=== PATIENT | male | born 1975 | race Caucasian/White ===

== ENCOUNTER 2024-09-15 17:57 | Emergency (ER) | payer BC, SELFPAY ==
[2024-09-15 18:19] VITALS: BP 163/100; PULSE 79; TEMP 36.8; O2SAT 96; BMI 28.2
--- NOTE | 2024-09-15 18:30 | ED_ITS ---
Documented by User: Stephanieantwan Guilloryon 09/15/24 21:03 HPI - Abdominal Pain General Chief Complaint: Abdominal Pain Stated Complaint: abd pain Time Seen by Provider: 09/15/24 18:27 Mode of arrival: walk-in History of Present Illness HPI narrative: 49 year old male presents to the ED for abd pain. Onset was within the past few days; it became worse today. Reports a known umbilical hernia for some time. He has never had pain to the area until this week. Denies fever, chills, N/V/D, urinary sx. States his bowel movements have been irregular. He had a small bowel movement this morning. He last passed gas at 1000 this morning. Related Data Allergies Allergy/AdvReac Type Severity Reaction Status Date / Time Penicillins AdvReac Severe Rash Verified 09/15/24 18:18 Review of Systems ROS Constitutional Denies: fever or chills Cardiovascular Denies: chest pain Respiratory Denies: shortness of breath Gastrointestinal Reports: abdominal pain, bloating and change in bowel habits; Denies: nausea, vomiting, diarrhea or constipation Genitourinary Denies: painful urination, urinary frequency, urinary urgency or blood in urine Musculoskeletal Denies: back pain or neck pain Neurological Denies: headache PFSH PFSH Social History Little interest or pleasure in doing things: not at all Feeling down, depressed, or hopeless: not at all Exam Constitutional Vital Signs, click to edit/add: Last Vital Signs Temp 98.2 F 09/15/24 18:19 Pulse 64 09/15/24 22:22 Resp 16 09/15/24 22:22 BP 153/96 H 09/15/24 22:22 Pulse Ox 97 09/15/24 22:22 O2 Del Method Room Air 09/15/24 22:22 Common normals: no apparent distress and oriented x3 General appearance: cooperative Eye Common normals: conjunctivae normal and no scleral icterus Neck & C-Spine Common normals: supple Chest Chest: symmetrical chest wall rise Respiratory Common normals: normal respiratory effort Effort & inspection: able to speak in complete sentences and symmetric chest mo vement Cardio Common normals: regular rate and regular rhythm GI Auscultation: hyperactive bowel sounds Palpation: tender Details: periumbilical and hernia umbilical (firm, tender) Neuro Common normals: oriented x3 and moves all extremities Sensorium/orientation: awake and alert Speech: speech normal Course Vital Signs Vital signs: Vital Signs Temperature 98.2 F 09/15/24 18:19 Pulse Rate 79 09/15/24 18:19 Respiratory Rate 18 09/15/24 18:19 Blood Pressure 163/100 H 09/15/24 18:19 Pulse Oximetry 96 09/15/24 18:19 Temperature 98.2 F 09/15/24 18:19 Pulse Rate 64 09/15/24 22:22 Respiratory Rate 16 09/15/24 22:22 Blood Pressure 153/96 H 09/15/24 22:22 Pulse Oximetry 97 09/15/24 22:22 Oxygen Delivery Method Room Air 09/15/24 22:22 MDM - Abdominal Pain MDM Narrative Medical decision making narrative: WBC count was 12.3. CT scan was pending. Care was resumed to Dr. Mullins. See her dictation for further evaluation and treatment. Differential Diagnosis Differential diagnosis: Likely abdominal pain, constipation, diverticulitis, small bowel obstruction and other (hernia) Medical Records Attestation: I reviewed the patient's medical records. Lab Data Attestation: I reviewed the patient's lab results. Labs: Lab Results 09/15/24 09/15/24 Range/Units 18:44 18:47 WBC 12.3 H (4.0-11.0) 10^3/uL RBC 5.30 (4.70-6.10) 10^6/uL Hgb 17.0 (14.0-18.0) g/dL Hct 50.0 (42.0-54.0) % MCV 94.3 H (80.0-94.0) fL MCH 32.1 (25.9-34.0) pg MCHC 34.0 (29.9-35.2) g/dL RDW 12.3 (11.0-15.0) % Plt Count 298 (150-450) 10^3/uL MPV 9.5 (9.5-13.5) fL Neut % (Auto) 60.1 (43.0-75.0) % Lymph % (Auto) 22.4 (20.5-60.0) % [place] % (Auto) 11.9 (1.7-12.0) % Eos % (Auto) 4.7 (0.9-7.0) % Baso % (Auto) 0.6 (0.2-2.0) % Neut # (Auto) 7.4 H (1.4-6.5) 10^3/uL Lymph # (Auto) 2.8 (1.2-3.8) 10^3/uL [place] # (Auto) 1.5 H (0.3-0.8) 10^3/uL Eos # (Auto) 0.6 (0.0-0.7) 10^3/uL Baso # (Auto) 0.1 (0.0-0.1) 10^3/uL Abs Immat Gran (auto) 0.04 H (0.00-0.03) 10^3/uL Imm/Tot Granulo (auto) 0.3 (0.0-0.5) % Sodium 138 (136-145) mmol/L Potassium 3.5 (3.5-5.1) mmol/L Chloride 104 (98-107) mmol/L Carbon Dioxide 25.8 (21.0-32.0) mmol/L Anion Gap 11.7 BUN 17.0 (7.0-18.0) mg/dL Creatinine 0.99 (0.70-1.30) mg/dL Est GFR ( Amer) >60 (>=60 mL/min/1.73m^2) Est GFR (Non-Af Amer) >60 (>=60 mL/min/1.73m^2) BUN/Creatinine Ratio 17.2 Glucose 85 (74-106) mg/dL Calcium 9.0 (8.5-10.1) mg/dL Total Bilirubin 0.7 (0.2-1.0) mg/dL AST 22 (15-37) U/L ALT 38 (16-63) U/L Alkaline Phosphatase 90 (46-116) U/L Total Protein 7.7 (6.4-8.2) g/dL Albumin 3.9 (3.4-5.0) g/dL Globulin 3.8 g/dL Albumin/Globulin Ratio 1.0 Lipase 60.0 (16.0-77.0) U/L Urine Color Lt. yellow (YELLOW) Urine Clarity Clear (CLEAR) Urine pH 6.0 (5.0-9.0) Ur Specific [place] 1.020 (1.005-1.025) Urine Protein Negative (NEG/TRACE) mg/dL Urine Glucose (UA) Negative (NEGATIVE) mg/dL Urine Ketones Negative (NEGATIVE) mg/dL Urine Occult Blood Trace-i (NEGATIVE) Urine Nitrite Negative (NEGATIVE) Urine Bilirubin Negative (NEGATIVE) Urine Urobilinogen 0.2 (0.2-1.0) EU/dL Ur Leukocyte Esterase Negative (NEGATIVE) Urine RBC 0-2 (0-2) #/HPF Urine WBC None seen (NONE SEEN) #/HPF Ur Squamous Epith Cells None seen (NONE/RARE) #/LPF Urine Crystals None seen (None Seen) #/HPF Urine Bacteria None seen (NONE SEEN) #/HPF Urine Casts None seen (NONE SEEN) #/LPF Urine Mucus None seen (NONE SEEN) Ur Culture Indicated? No Imaging Data CT scan - abdomen: Radiologist's impression: ITS Impressions Abdomen/Pelvis CT 09/15/24 18:30 IMPRESSION: 1. Mild stranding seen adjacent to the right-sided colonic diverticula, consistent with mild right-sided diverticulitis. 2. Small umbilical hernia containing predominantly fatty tissue with mild infiltration. Recommend clinical correlation for possible incarceration. 3. Small left inguinal hernia containing predominantly fatty tissue. Colonic diverticulosis. Mild hepatic steatosis. 4. Nonobstructing 3 mm calculus lower pole left kidney. Electronically authenticated by: ANKIT BERMAN Date: 09/15/2024 21:30 Discharge Plan Discharge Chief Complaint: Abdominal Pain Clinical Impression: Abdominal pain, Hernia, umbilical, Diverticulitis Patient Disposition: Home, Self-Care Time of Disposition Decision: 21:49 Condition: Good Mode of Transportation: Private Vehicle Print Language: Cypriot Instructions: Diverticulitis (ED), Umbilical Hernia (ED) Referrals: Armani Collazo MD [Primary Care Provider] - 1 week Dustin Cuenca DO [Physician] - 1 week Edgar Veliz MD [Physician] - 1 week Discharge Date/Time: 09/15/24 21:54 Documented by User: Jordana Mullins MD 09/15/24 23:39 HPI - Abdominal Pain General Chief Complaint: Abdominal Pain Stated Complaint: abd pain Time Seen by Provider: 09/15/24 18:27 Related Data Allergies Allergy/AdvReac Type Severity Reaction Status Date / Time Penicillins AdvReac Severe Rash Verified 09/15/24 18:18 PFSH PFSH Social History Little interest or pleasure in doing things: not at all Feeling down, depressed, or hopeless: not at all Exam Constitutional Vital Signs, click to edit/add: Last Vital Signs Temp 98.2 F 09/15/24 18:19 Pulse 64 09/15/24 22:22 Resp 16 09/15/24 22:22 BP 153/96 H 09/15/24 22:22 Pulse Ox 97 09/15/24 22:22 O2 Del Method Room Air 09/15/24 22:22 Course Vital Signs Vital signs: Vital Signs Temperature 98.2 F 09/15/24 18:19 Pulse Rate 79 09/15/24 18:19 Respiratory Rate 18 09/15/24 18:19 Blood Pressure 163/100 H 09/15/24 18:19 Pulse Oximetry 96 09/15/24 18:19 Temperature 98.2 F 09/15/24 18:19 Pulse Rate 64 09/15/24 22:22 Respiratory Rate 16 09/15/24 22:22 Blood Pressure 153/96 H 09/15/24 22:22 Pulse Oximetry 97 09/15/24 22:22 Oxygen Delivery Method Room Air 09/15/24 22:22 MDM - Abdominal Pain MDM Narrative Medical decision making narrative: WBC count was 12.3. CT scan was pending. Care was resumed to Dr. Mullins. See her dictation for further evaluation and treatment. This patient was seen and evaluated in conjunction with the nurse practitioner. Please refer to her H&P This 49-year-old male with a history of umbilical hernia presents for evaluation of increasing hernia pain with some mild redness at the area and generalized abdominal pain with fullness. He has not had a fever. He denies any specific constipation but states his bowels have not been moving as normal. He has not had any fevers or chills. He has not had any nausea or vomiting. His umbilical hernia is mildly tender and erythematous. I did not attempt to reduce it after the CT scan report revealed that it only contained fat. His labs are essentially normal. CT scan of the abdomen pelvis shows fat-containing umbilical hernia and mild diverticulitis. The results of the CT scan were discussed with the patient at length. He is not having significant pain at this time and is not having any nausea or vomiting. I suspect that his hernia is not the etiology of his pain. General surgery is not available at this time at this facility for consultation. I offered to speak with surgeons at another facility but clinically the patient is not suffering from an incarcerated hernia. He was medicated with oral Cipro and Flagyl and given 2 [place] to take at home. He was encouraged to follow-up closely with his family physician for referral to a general surgeon for repair of the fat-containing umbilical hernia and was given prescriptions for Cipro, Flagyl, Zofran, [place] and Colace. He was encouraged return to the emergency department for worsening abdominal pain especially if it is an associated with nausea and vomiting. He is in agreement with this plan. He was given referral information for both general surgeon to practice at this facility but are not on-call currently. Medical Records Medical records narrative: [place] [address] CT Scan Report Signed Patient: ALEXANDRA MYERS MR#: [id number] : 1975 Acct:[id number] Age/Sex: 49 / M ADM Date: 09/15/24 Loc: ER Attending Dr: Ordering Physician: Stephanie Valencia Date of Service: 09/15/24 Procedure(s): CT abdomen pelvis w con Accession Number(s): [id number] cc: Armani Collazo M.D.~ [facility] [place] [id number] Patient Name: ALEXANDRA MYERS MRN: [id number] date: 1975 Sex: M Assigned Patient Location: ER Current Patient Location: ER Accession/Order Number: [id number] Exam Date: 09/15/2024 19:13 Report Date: 09/15/2024 21:30 At the request of: STEPHANIE VALENCIA Procedure: CT abdomen pelvis w con EXAM: CT abdomen pelvis w con , 09/15/2024 HISTORY: Mid abd pain COMPARISON: None. TECHNIQUE: Contrast CT scan of the abdomen and pelvis was performed, using 100 ml Omnipaque 300 intravenous iodine contrast. Coronal and sagittal reconstructions were performed. Dose reduction techniques were achieved by using automated exposure control and/or adjustment of mA and/or kV according to patient size and/or use of iterative reconstruction technique. FINDINGS: Small umbilical hernia is visualized, containing predominantly fatty tissue with mild infiltration, recommend clinical correlation for possible incarceration. The anterior abdominal wall defect measures 1.5 cm. Mild hepatic steatosis without focal lesion. Patent portal venous system. The gallbladder, bile ducts, spleen, pancreas and both adrenal glands are unremarkable. The right kidney shows no focal lesion. The left kidney demonstrates a nonobstructing calculus lower pole measuring 3 mm. Probable subcentimeter cortical cyst lower pole left kidney. The urinary bladder is partially filled and appears unremarkable. Prostate gland is not enlarged Mild stranding is seen adjacent the mid right ascending colon which could be due to right-sided diverticulitis. No abscess formation or perforation. Diverticula are seen throughout the entire colon as well. The appendix is clearly visualized and shows no abnormality. No bowel loop dilatation. No free fluid in the peritoneal cavity. Small left inguinal hernia containing predominantly fatty tissue. Unremarkable abdominal aorta and IVC. No enlarged lymph node in the abdomen, retroperitoneum or the pelvis. The bone windows demonstrate unremarkable osseous structures. Scans through lung bases show minimal dependent atelectasis. CT/CT abdomen pelvis w con IMPRESSION: 1. Mild stranding seen adjacent to the right-sided colonic diverticula, consistent with mild right-sided diverticulitis. 2. Small umbilical hernia containing predominantly fatty tissue with mild infiltration. Recommend clinical correlation for possible incarceration. 3. Small left inguinal hernia containing predominantly fatty tissue. Colonic diverticulosis. Mild hepatic steatosis. 4. Nonobstructing 3 mm calculus lower pole left kidney. Electronically authenticated by: ANKIT BERMAN Date: 09/15/2024 21:30 Lab Data Labs: Lab Results 09/15/24 09/15/24 Range/Units 18:44 18:47 WBC 12.3 H (4.0-11.0) 10^3/uL RBC 5.30 (4.70-6.10) 10^6/uL Hgb 17.0 (14.0-18.0) g/dL Hct 50.0 (42.0-54.0) % MCV 94.3 H (80.0-94.0) fL MCH 32.1 (25.9-34.0) pg MCHC 34.0 (29.9-35.2) g/dL RDW 12.3 (11.0-15.0) % Plt Count 298 (150-450) 10^3/uL MPV 9.5 (9.5-13.5) fL Neut % (Auto) 60.1 (43.0-75.0) % Lymph % (Auto) 22.4 (20.5-60.0) % [place] % (Auto) 11.9 (1.7-12.0) % Eos % (Auto) 4.7 (0.9-7.0) % Baso % (Auto) 0.6 (0.2-2.0) % Neut # (Auto) 7.4 H (1.4-6.5) 10^3/uL Lymph # (Auto) 2.8 (1.2-3.8) 10^3/uL [place] # (Auto) 1.5 H (0.3-0.8) 10^3/uL Eos # (Auto) 0.6 (0.0-0.7) 10^3/uL Baso # (Auto) 0.1 (0.0-0.1) 10^3/uL Abs Immat Gran (auto) 0.04 H (0.00-0.03) 10^3/uL Imm/Tot Granulo (auto) 0.3 (0.0-0.5) % Sodium 138 (136-145) mmol/L Potassium 3.5 (3.5-5.1) mmol/L Chloride 104 (98-107) mmol/L Carbon Dioxide 25.8 (21.0-32.0) mmol/L Anion Gap 11.7 BUN 17.0 (7.0-18.0) mg/dL Creatinine 0.99 (0.70-1.30) mg/dL Est GFR ( Amer) >60 (>=60 mL/min/1.73m^2) Est GFR (Non-Af Amer) >60 (>=60 mL/min/1.73m^2) BUN/Creatinine Ratio 17.2 Glucose 85 (74-106) mg/dL Calcium 9.0 (8.5-10.1) mg/dL Total Bilirubin 0.7 (0.2-1.0) mg/dL AST 22 (15-37) U/L ALT 38 (16-63) U/L Alkaline Phosphatase 90 (46-116) U/L Total Protein 7.7 (6.4-8.2) g/dL Albumin 3.9 (3.4-5.0) g/dL Globulin 3.8 g/dL Albumin/Globulin Ratio 1.0 Lipase 60.0 (16.0-77.0) U/L Urine Color Lt. yellow (YELLOW) Urine Clarity Clear (CLEAR) Urine pH 6.0 (5.0-9.0) Ur Specific [place] 1.020 (1.005-1.025) Urine Protein Negative (NEG/TRACE) mg/dL Urine Glucose (UA) Negative (NEGATIVE) mg/dL Urine Ketones Negative (NEGATIVE) mg/dL Urine Occult Blood Trace-i (NEGATIVE) Urine Nitrite Negative (NEGATIVE) Urine Bilirubin Negative (NEGATIVE) Urine Urobilinogen 0.2 (0.2-1.0) EU/dL Ur Leukocyte Esterase Negative (NEGATIVE) Urine RBC 0-2 (0-2) #/HPF Urine WBC None seen (NONE SEEN) #/HPF Ur Squamous Epith Cells None seen (NONE/RARE) #/LPF Urine Crystals None seen (None Seen) #/HPF Urine Bacteria None seen (NONE SEEN) #/HPF Urine Casts None seen (NONE SEEN) #/LPF Urine Mucus None seen (NONE SEEN) Ur Culture Indicated? No Imaging Data CT scan - abdomen: Radiologist's impression: ITS Impressions Abdomen/Pelvis CT 09/15/24 18:30
[2024-09-15 19:09] LABS: Basophils Absolute Auto 0.1 10^3/uL (0.0-0.1); Basophils Percent Auto 0.6 % (0.2-2.0); Eosinophils Absolute Auto 0.6 10^3/uL (0.0-0.7); Eosinophils Percent Auto 4.7 % (0.9-7.0); Immature Granulocytes Abs Auto 0.04 10^3/uL (0.00-0.03); Immature Granulocytes Pct Auto 0.3 % (0.0-0.5); Lymphocytes Absolute Auto 2.8 10^3/uL (1.2-3.8); Lymphocytes Percent Auto 22.4 % (20.5-60.0); Mean Corpuscular Hemoglobin 32.1 pg (25.9-34.0); Mean Corpuscular Volume 94.3 fL (80.0-94.0); Mean Platelet Volume 9.5 fL (9.5-13.5); Monocytes Absolute Auto 1.5 10^3/uL (0.3-0.8); Monocytes Percent Auto 11.9 % (1.7-12.0); Neutrophils Absolute Auto 7.4 10^3/uL (1.4-6.5); Neutrophils Percent Auto 60.1 % (43.0-75.0); Platelet Count 298 10^3/uL (150-450); Red Cell Distribution Width 12.3 % (11.0-15.0); White Blood Count 12.3 10^3/uL (4.0-11.0)
[2024-09-15 19:10] LABS: Bilirubin Urine NEGATIVE (NEGATIVE); Blood Urine TRACE-I (NEGATIVE); Clarity Urine CLEAR (CLEAR); Color Urine LT. YELLOW (YELLOW); Glucose Urine UA NEGATIVE (NEGATIVE); Ketones Urine NEGATIVE (NEGATIVE); Leukocyte Esterase Urine NEGATIVE (NEGATIVE); Nitrite Urine NEGATIVE (NEGATIVE); Protein Urine NEGATIVE (NEG/TRACE); Urobilinogen Urine 0.2 EU/dL (0.2-1.0)
[2024-09-15 19:15] LABS: Urine Microscopic Indicated YES
[2024-09-15 19:23] LABS: Bacteria Urine NONE SEEN #/HPF (NONE SEEN); Cast Seen? NONE SEEN #/LPF (NONE SEEN); Crystals Seen? None Seen #/HPF (None Seen); Mucus Urine NONE SEEN (NONE SEEN); RBC Urine 0-2 #/HPF (0-2); Squamous Epithelial Cell Urine NONE SEEN #/LPF (NONE/RARE); Urine Culture Indicated NO; WBC Urine NONE SEEN #/HPF (NONE SEEN)
[2024-09-15 19:25] LABS: Alanine Aminotransferase 38 U/L (16-63); Albumin Level 3.9 g/dL (3.4-5.0); Alkaline Phosphatase 90 U/L (46-116); Anion Gap 11.7; Aspartate Amino Transferase 22 U/L (15-37); BUN Creatinine Ratio 17.2; Bilirubin Total 0.7 mg/dL (0.2-1.0); Carbon Dioxide 25.8 mmol/L (21.0-32.0); Chloride 104 mmol/L (98-107); Estimated GFR (African America >60 (>=60 mL/min/1.73m^2); Estimated GFR (Non-African Ame >60 (>=60 mL/min/1.73m^2); Globulin 3.8 g/dL; Glucose 85 mg/dL (74-106); Potassium 3.5 mmol/L (3.5-5.1); Sodium 138 mmol/L (136-145); Total Protein 7.7 g/dL (6.4-8.2)
[2024-09-15 19:54] VITALS: BP 130/85; PULSE 72; O2SAT 97
[2024-09-15] MEDS: HYDROCODONE/ACET 5-325 MG TABLET 1 TAB PO (22:15)
[2024-09-15] MEDS: METRONIDAZOLE 250 MG TABLET 500 MG PO (22:15)
[2024-09-15] MEDS: CIPROFLOXACIN HCL 500 MG TABLET PO (22:16)
[2024-09-15 22:22] VITALS: BP 153/96; PULSE 64; O2SAT 97
== END 2024-09-15 21:54 | disposition home or self-care (01) ==
PROVIDERS: Nurse Practitioner Family; Emergency Provider Emergency Medicine; PCP Family Medicine
DX: K57.32 Diverticulitis of large intestine without perforation or abscess without bleeding (principal); K42.9 Umbilical hernia without obstruction or gangrene; K40.90 Unilateral inguinal hernia, without obstruction or gangrene, not specified as recurrent; R10.9 Unspecified abdominal pain
CPT/HCPCS: 36415; 74177; 80053; 81001; 83690; 85025; 99285; Q9967